=== PATIENT | female | born 1950 | race Asian ===

== ENCOUNTER 2020-09-12 03:50 | Emergency (ER) | payer MEDICARE ==
[~2020-09-12] VITALS: Ht 162.6 cm; Wt 68.0 kg
[~2020-09-12 03:50] MED LIST: DULO60CA; ENTE1TAB; FURO1TAB31; INSUINJ49; MECL25TA94; OXYCONTIN; POTA-167; PREG100C; SPIRONALACTONE; VALS160T51
[2020-09-12] MEDS ORDERED: MORPHINE SULFATE 4 MG/ML SYR/VIAL IV ONE ×2 (05:15→06:15)
[2020-09-12] MEDS ORDERED: ONDANSETRON HCL 4 MG/2 ML VIAL IV ONE ×2 (05:15→06:15)
[2020-09-12] MEDS ORDERED: BACITRACIN TOP OINT 1 UD PKG TOP ONE (07:15)
[2020-09-12 07:33] VITALS: BP 139/103
[2020-09-12] MEDS ORDERED: LIDOCAINE 2%HCL (LOCAL ANESTH.) INJ 20ML MDV ONE (08:14)
[2020-09-12] MEDS ORDERED: LIDOCAINE HCL 2 %PF INJ 10ML AMP IJ ONE (09:30)
[2020-09-12] MEDS ORDERED: LIDOCAINE 2%HCL (LOCAL ANESTH.) INJ 10ml MDV IJ ONE (09:30)
--- NOTE | 2020-09-12 12:10 | NUR ---
ss consult Per consult that is not for patient, but her . SS consult states that patient is unable to care for her . I informed patient to contact patients PCP for evaluation. I also provided patient with assisted living options and private pay caregiver resources. Addendum: 09/12/20 at 1215 by Annelise Hernandez Amended: Links added.
--- NOTE | 2020-09-12 12:17 | NUR ---
re-assessment Patient called me back and informed me she wants rehab for her and that's when I found out he has been admitted here at [facility]. I informed Mago that patients post discharge needs to be determined after MD work up. Addendum: 09/12/20 at 1219 by Annelise Hernandez SS Amended: Links added.
== END 2020-09-12 09:47 | disposition home or self-care (01) ==
LOC: EDBD 03:50 → ER 03:50
DX: S61.304A Unspecified open wound of right ring finger with damage to nail, initial encounter (principal); S00.83XA Contusion of other part of head, initial encounter; S02.2XXB Fracture of nasal bones, initial encounter for open fracture; E11.9 Type 2 diabetes mellitus without complications; I10 Essential (primary) hypertension; Z79.899 Other long term (current) drug therapy; X58.XXXA Exposure to other specified factors, initial encounter; Y93.89 Activity, other specified; Y92.89 Other specified places as the place of occurrence of the external cause; Y99.8 Other external cause status
CPT/HCPCS: 26755; 70450; 70486; 73130; 82962; 96374; 96375; 96376; 99285; J2001; J2270; J2405

== ENCOUNTER 2023-05-23 06:38 | Emergency (ER) | payer MEDICARE, OTHER ==
[~2023-05-23] VITALS: Ht 162.6 cm; Wt 88.0 kg
[~2023-05-23 06:38] MED LIST changes: -DULO60CA; +DULO60CA41; -POTA-167; +POTA-211; +VALS160T4; -VALS160T51
[2023-05-23 07:18] LABS: Basophils # (auto) 0.1 10 ^3/uL (0-0.2); Basophils % (auto) 0.8 % (0.0-2.0); Lymphocytes # (auto) 3.1 10 ^3/uL (0.4-5.4); Monocytes # (auto) 0.7 10 ^3/uL (0-1.3); Neutrophils # (auto) 7.4 10 ^3/uL (1.6-8.6); Neutrophils % (auto) 63.7 % (37.0-80.0); Nucleated Red Blood Cells % 0.2 %
[2023-05-23 07:20] LABS: Eosinophils # (auto) 0.4 10 ^3/uL (0-0.8); Eosinophils % (auto) 3.1 % (0.0-7.0); Hematocrit 55.6 % (36.0-46.0); Hemoglobin 18.4 g/dL (12.2-16.2); Lymphocytes % (auto) 26.7 % (10.0-50.0); Mean Corpuscular Hemoglobin 29.6 pg (28.0-32.0); Mean Corpuscular Hgb Conc. 33.1 g/dL (32.0-36.0); Mean Corpuscular Volume 89.4 fL (80.0-100.0); Monocytes % (auto) 5.7 % (0.0-12.0); Red Blood Cells 6.22 10^6/uL (4.0-5.20); Red Cell Distribution Width 13.8 % (11.8-14.3); White Blood Cell 11.7 10^3/uL (4.4-10.8)
[2023-05-23 08:18] VITALS: BP 127/77
[2023-05-23 08:27] LABS: BUN/Creatinine Ratio 14.6 (10.0-20.0); Potassium 4.3 mmol/L (3.5-5.1)
[2023-05-23 08:28] LABS: Albumin 3.5 g/dL (3.4-5.0); Bilirubin, Total 0.7 mg/dL (0.2-1.0); Calcium 9.8 mg/dL (8.5-10.1); Total Protein 7.9 g/dL (6.4-8.2)
== END 2023-05-23 08:55 | disposition left against medical advice (07) ==
LOC: EDBD 06:38 → ER 06:38 → EDSEX 06:38 → ER 08:55
DX: R11.2 Nausea with vomiting, unspecified (principal); Z53.21 Procedure and treatment not carried out due to patient leaving prior to being seen by health care provider
CPT/HCPCS: 36415; 80053; 84484; 85025